=== PATIENT | female | born 1995 ===

== ENCOUNTER 2017-02-12 10:26 | Outpatient (CLI) | payer OTHER ==
--- NOTE | 2017-02-12 15:05 | Magnetic Resonance Report ---
MR scan of the cranium was performed with and without contrast. Pulse sequences included: 1. T1 weighted sagittal and axial images without contrast and T1 axial images with contrast and coronal and sagittal reformatted images with contrast 2. T2 weighted axial and coronal images 3. FLAIR axial images 4. Diffusion-weighted axial images 5. Apparent diffusion coefficient images 6. gradient echo axial images Views of the posterior fossa showed a normal craniocervical junction. Cerebellar pontine angles were normal with normal seventh-eighth nerve complexes. Brainstem and cerebellum were normal. The ventricular system showed no dilatation or distortion. Images of the hemispheres showed no areas of increased or decreased signal. Sinuses, pituitary, flow voids in the tang[place]q of [place], orbits, and basal ganglia were normal. There are no abnormal areas of enhancement with contrast. Impression: Normal MR scan of the cranium with and without contrast
== END 2017-02-12 10:27 | disposition home or self-care (01) ==
LOC: SPVIMAG 10:26
PROVIDERS: ATTEND Specialist
DX: G81.94 Hemiplegia, unspecified affecting left nondominant side (principal)
CPT/HCPCS: 70553; A9577

== ENCOUNTER 2017-02-17 09:35 | Outpatient (CLI) | payer OTHER ==
--- NOTE | 2017-02-17 14:06 | Magnetic Resonance Report ---
MR CERVICAL SPINE WITH AND WITHOUT CONTRAST: HISTORY: Hemiplegia. TECHNIQUE: Multisequence, multiplanar MRI before and after IV gadolinium. FINDINGS: The cervical spinal cord, spinal canal, vertebral bodies, disc spaces, posterior elements and paraspinal soft tissues are unremarkable. There is no abnormal enhancement following IV gadolinium. IMPRESSION: Normal MRI cervical spine with and without contrast.
== END 2017-02-17 09:36 | disposition home or self-care (01) ==
LOC: SPVIMAG 09:35
PROVIDERS: ATTEND Specialist
DX: G81.94 Hemiplegia, unspecified affecting left nondominant side (principal)
CPT/HCPCS: 72156; A9577